=== PATIENT | female | born 1940 | race Caucasian/White ===

== ENCOUNTER 2016-07-18 09:45 | Day surgery (SDC) | payer MEDICARE ==
[~2016-07-18 09:45] MED LIST: KETOROLAC TROMETHAMINE 0.45% 4 DROP/0.4 ML DROPERETTE OD PRN
[2016-07-18] MEDS: TROPICAMIDE 1% OPH SOLN 3 ML OD PRN ×3 (10:08→10:27)
[2016-07-18] MEDS: CYCLOPENTOLATE 0.2%/PHENYLEPHRINE 1% OPH SOLN 2 ML OD PRN ×3 (10:09→10:28)
[2016-07-18] MEDS: BESIFLOXACIN HCL 0.6% OPH SUSP 5 ML BOTTLE OD PRN ×3 (10:10→11:06)
[2016-07-18] MEDS: TETRACAINE HCL 0.5% OPH SOLN 0.6 ML DROPERETTE OD PRN ×3 (10:12→10:47)
[2016-07-18] MEDS ORDERED: TOBRAMYCIN SULFATE/DEXAMETH OPH OINTMENT 3.5 GM ONE (10:23)
[2016-07-18] MEDS ORDERED: EPINEPHRINE INJ/PF 1 MG/1 ML AMPULE ONE (10:23)
[2016-07-18] MEDS ORDERED: LIDOCAINE 1% INJ-PF (10 MG/ML) 30 ML SDV ONE (10:23)
[2016-07-18] MEDS ORDERED: CHONDR SU A NA/HYALUR INTRAOC KIT (SURGICARE) ONE (10:24)
[2016-07-18] MEDS ORDERED: MIDAZOLAM 2 MG/2 ML INJ ONE (10:33)
[2016-07-18] MEDS ORDERED: FENTANYL CITRATE INJ/PF 100 MCG/2 ML AMPUL ONE (10:33)
== END 2016-07-18 11:53 | disposition home or self-care (01) ==
LOC: SC 09:45
PROVIDERS: ATTEND Ophthalmology
PROC: 08RJ3JZ Replacement of Right Lens with Synthetic Substitute, Percutaneous Approach (ICD-10-PCS; principal; 2016-07-18 10:45)
DX: H25.11 Age-related nuclear cataract, right eye (principal); M19.90 Unspecified osteoarthritis, unspecified site; I10 Essential (primary) hypertension; K21.9 Gastro-esophageal reflux disease without esophagitis; Z79.899 Other long term (current) drug therapy; Z88.2 Allergy status to sulfonamides; Z87.891 Personal history of nicotine dependence
CPT/HCPCS: 66984; V2630; J2250; J3490 ×3; A9270; J0171; J3010; 142

== ENCOUNTER 2016-08-08 06:26 | Day surgery (SDC) | payer MEDICARE ==
[~2016-08-08 06:26] MED LIST changes: -KETOROLAC TROMETHAMINE 0.45% 4 DROP/0.4 ML DROPERETTE OD PRN; +KETOROLAC TROMETHAMINE 0.45% 4 DROP/0.4 ML DROPERETTE OS PRN
[2016-08-08] MEDS: TROPICAMIDE 1% OPH SOLN 3 ML OS PRN ×3 (06:48→07:08)
[2016-08-08] MEDS: BESIFLOXACIN HCL 0.6% OPH SUSP 5 ML BOTTLE OS PRN ×3 (06:48→07:53)
[2016-08-08] MEDS: CYCLOPENTOLATE 0.2%/PHENYLEPHRINE 1% OPH SOLN 2 ML OS PRN ×3 (06:48→07:08)
[2016-08-08] MEDS: TETRACAINE HCL 0.5% OPH SOLN 0.6 ML DROPERETTE OS PRN ×3 (06:49→07:37)
[2016-08-08] MEDS ORDERED: EPINEPHRINE INJ/PF 1 MG/1 ML AMPULE ONE (07:13)
[2016-08-08] MEDS ORDERED: TOBRAMYCIN SULFATE/DEXAMETH OPH OINTMENT 3.5 GM ONE (07:13)
[2016-08-08] MEDS ORDERED: LIDOCAINE 1% INJ-PF (10 MG/ML) 30 ML SDV ONE (07:13)
[2016-08-08] MEDS ORDERED: CHONDR SU A NA/HYALUR INTRAOC KIT (SURGICARE) ONE (07:13)
[2016-08-08] MEDS ORDERED: MIDAZOLAM 2 MG/2 ML INJ ONE (07:25)
== END 2016-08-08 08:31 | disposition home or self-care (01) ==
LOC: SC 06:26
PROVIDERS: ATTEND Ophthalmology
PROC: 08RK3JZ Replacement of Left Lens with Synthetic Substitute, Percutaneous Approach (ICD-10-PCS; principal; 2016-08-08 07:30)
DX: H25.12 Age-related nuclear cataract, left eye (principal); Z96.1 Presence of intraocular lens; M19.90 Unspecified osteoarthritis, unspecified site; I10 Essential (primary) hypertension; K21.9 Gastro-esophageal reflux disease without esophagitis; Z79.899 Other long term (current) drug therapy; Z87.891 Personal history of nicotine dependence; Z88.2 Allergy status to sulfonamides
CPT/HCPCS: 66984; V2630; J2250; J3490 ×3; A9270; J0171; 142